=== PATIENT | female | born 1995 | race American Indian/Alaskan Native ===

== ENCOUNTER 2021-07-17 19:10 | Emergency (ER) | payer MEDICAID ==
[2021-07-17] MEDS ORDERED: IPRATROPIUM 0.02% NEBU 2.5 ML IH ONE (19:21)
[2021-07-17] MEDS ORDERED: SODIUM CHLORIDE 0.9% 1000 ML 1,000 ML IV ONE (19:21)
[2021-07-17] MEDS ORDERED: ALBUTEROL 2.5 MG/3 ML NEBU IH ONE ×2 (19:21→21:18)
[2021-07-17] MEDS ORDERED: methylPREDNISolone Sod Succinate 125 MG/2 ML INJ IV ONE (19:21)
--- NOTE | 2021-07-17 19:23 | Event Note ---
ED Screening Note Date of service: 07/17/21 Time: 19:22 ED Screening Note: This initial assessment/diagnostic orders/clinical plan/treatment(s) is/are subject to change based on patients health status, clinical progression and re- assessment by fellow clinical providers in the ED. Further treatment and workup at subsequent clinical providers discretion. Patient/guardian urged not to elope from the ED as their condition may be serious if not clinically assessed and managed. Is a 26-year-old female with history of asthma. Patient presents with concern for shortness of breath secondary to possible asthma exacerbation. She received DuoNeb's prior to my evaluation. On exam she does have wheezing noted bilaterally. Initial orders include: X-ray, basic labs, DuoNeb's, Solu-Medrol.
[2021-07-17 19:38] LABS: Basophils % (Auto) 0.5 % (0.0-1.8); Eosinophils % (Auto) 0.7 % (0.0-4.3); Hematocrit 37.4 % (30.3-42.9); Hemoglobin 12.4 gm/dl (10.1-14.3); Lymphocytes # (Auto) 1.5 K/mm3 (1.2-5.4); Lymphocytes % (Auto) 24.4 % (13.4-35.0); Mean Corpuscular HGB Conc 33 % (30-34); Mean Corpuscular Volume 93 fl (79-97); Monocytes # (Auto) 0.5 K/mm3 (0.0-0.8); Monocytes % (Auto) 7.8 % (0.0-7.3); Platelet Count 260 K/mm3 (140-440); Red Blood Count 4.02 M/mm3 (3.65-5.03); Red Cell Distribution Width 12.9 % (13.2-15.2)
[2021-07-17] MEDS ORDERED: KETOROLAC 30 MG/1 ML INJ IV ONE (21:18)
--- NOTE | 2021-07-17 21:26 | Emergency Department Report ---
HPI - General Chief Complaint: Adult Asthma Time Seen by Provider: 07/17/21 21:08 - HPI HPI: 26-year-old -[place] female presents to the emergency department with complaint of shortness of breath, wheezing, and some left-sided rib/chest pain that started earlier today. Initially she called out EMS and they gave her a nebulizer treatment with some improvement of her shortness of breath. However she continued to have the left-sided rib/chest pain so she came in to be seen. She says that the pain prior to treatment in the emergency department was 10 out of 10 but is now down to a 7 out of 10. It worsens with movements, ambulation, palpation. The patient says that she has had the same Fiona pains with previous asthma exacerbations but usually not this intense. She does not have an inhaler or nebulizer machine at home. She does not smoke cigarettes. No sick contacts at home. She denies any fever, lower extremity swelling, back p ain, nausea, vomiting or diaphoresis. [facility] to [facility]. ED Past Medical Hx - Past Medical History Previous Medical History?: Yes Hx Asthma: Yes - Surgical History Past Surgical History?: No - Social History Smoking Status: Current Every Day Smoker Substance Use Type: Marijuana - Medications Home Medications: Home Medications Medication Instructions Recorded Confirmed Last Taken Type Albuterol Mdi (or & Nicu Only) 2 puff IH QID PRN #8.5 gram 07/17/21 Unknown Rx [ProAir HFA Inhaler] predniSONE [Deltasone] 20 mg PO QDAY #4 tab 07/17/21 Unknown Rx ED Review of Systems ROS: Stated complaint: ASTHMA Other details as noted in HPI Comment: All other systems reviewed and negative Constitutional: denies: chills, fever Eyes: denies: eye pain, vision change ENT: denies: ear pain, throat pain Respiratory: shortness of breath, wheezing Cardiovascular: chest pain. denies: edema Gastrointestinal: denies: abdominal pain, vomiting Genitourinary: denies: dysuria, discharge Musculoskeletal: denies: back pain, arthralgia Skin: denies: rash, lesions Neurological: denies: headache, weakness Physical Exam - Physical Exam Vital Signs: Vital Signs 07/17/21 19:22 Temperature 98 F Pulse Rate 86 Respiratory 20 Rate Blood Pressure 127/64 O2 Sat by Pulse 100 Oximetry Physical Exam: GENERAL: The patient is well-developed well-nourished. HENT: Normocephalic. Atraumatic. Patient has moist mucous membranes. EYES: Extraocular motions are intact. NECK: Supple. Trachea is midline. CHEST/LUNGS: Mild expiratory wheezing. No tachypnea or accessory muscle use. There is reproducible left anterior lateral rib tenderness to palpation. No crepitus or deformity. There is no respiratory distress noted. HEART/CARDIOVASCULAR: Regular. There is no tachycardia. There is no murmur. ABDOMEN: Abdomen is soft, nontender. Patient has normal bowel sounds. SKIN: Skin is warm and dry. NEURO: The patient is awake, alert, and oriented. The patient is cooperative. The patient has no focal neurologic deficits. Normal speech. MUSCULOSKELETAL: There is no tenderness or deformity. There is no limitation range of motion. ED Course Vital Signs 07/17/21 19:22 Temperature 98 F Pulse Rate 86 Respiratory 20 Rate Blood Pressure 127/64 O2 Sat by Pulse 100 Oximetry ED Medical Decision Making - Lab Data Result diagrams: 07/17/21 19:29 Lab Results 07/17/21 07/17/21 07/17/21 Range/Units 19:29 19:29 21:30 WBC 6.2 (4.5-11.0) K/mm3 RBC 4.02 (3.65-5.03) M/mm3 Hgb 12.4 (10.1-14.3) gm/dl Hct 37.4 (30.3-42.9) % MCV 93 (79-97) fl MCH 31 (28-32) pg MCHC 33 (30-34) % RDW 12.9 L (13.2-15.2) % Plt Count 260 (140-440) K/mm3 Lymph % (Auto) 24.4 (13.4-35.0) % [place] % (Auto) 7.8 H (0.0-7.3) % Eos % (Auto) 0.7 (0.0-4.3) % Baso % (Auto) 0.5 (0.0-1.8) % Lymph # (Auto) 1.5 (1.2-5.4) K/mm3 [place] # (Auto) 0.5 (0.0-0.8) K/mm3 Eos # (Auto) 0.0 (0.0-0.4) K/mm3 Baso # (Auto) 0.0 (0.0-0.1) K/mm3 Seg Neutrophils % 66.6 (40.0-70.0) % Seg Neutrophils # 4.1 (1.8-7.7) K/mm3 Magnesium 1.90 (1.7-2.3) mg/dL HCG, Qual Negative (Negative) - Radiology Data Radiology results: image reviewed interpreted by me: Chest x-ray does not show any acute process. There are no pleural effusions, obvious pneumonia and there is no pneumothorax. No widened mediastinum. - Medical Decision Making This patient presents to the emergency department with complaint of shortness of breath, wheezing and some left-sided chest/rib pain. The chest/rib pain is reproducible to palpation and with certain movements of her torso. The patient was seen by one of my colleagues prior to my shift starting and she was given a DuoNeb breathing treatment, Solu-Medrol, and some IV fluid. During my initial examination there is only some mild expiratory wheezing the patient does not appear in any respiratory or acute distress. The chest discomfort appears to be more consistent with costochondritis and/or chest wall pain and does not appear consistent with ACS or coronary artery disease. Chest x-ray does not show any pneumonia, pleural effusions, pneumothorax, widened mediastinum, or any other acute process. Patient was later given a dose of Toradol. Upon reevaluation she is feeling greatly improved. Vital signs reassuring including being afebrile. She will be discharged home to follow-up with primary care and has been given an albuterol inhaler and a small course of steroids. Critical Care Time: No Critical care attestation.: If time is entered above; I have spent that time in minutes in the direct care of this critically ill patient, excluding procedure time. ED Disposition Clinical Impression: Rib pain on left side Asthma exacerbation Qualifiers: Asthma severity: unspecified severity Asthma persistence: unspecified Qualified Code(s): J45.901 - Unspecified asthma with (acute) exacerbation Disposition: 01 HOME / SELF CARE / HOMELESS Is pt being admited?: No Condition: Stable Instructions: Nonspecific Chest Pain, Adult, Asthma Attack Additional Instructions: Please follow-up with a primary care physician in the next few days. Return to the emergency department with any worsening of your symptoms, new or concerning symptoms not addressed during this current emergency department visit, or with any acute distress. Prescriptions: predniSONE [Deltasone] 20 mg PO QDAY #4 tab Albuterol Mdi (or & Nicu Only) [ProAir HFA Inhaler] 2 puff IH QID PRN #8.5 gram PRN Reason: Shortness Of Breath Referrals: [facility] [Provider Group] - 3-5 Days Time of Disposition: 23:26
--- NOTE | 2021-07-17 22:30 | XRay Report ---
XR chest routine 2V INDICATION / CLINICAL INFORMATION: CP, SOB. COMPARISON: None available. FINDINGS: SUPPORT DEVICES: None. HEART /PULMONARY VASCULATURE: No significant abnormality. LUNGS / PLEURA: No significant pulmonary or pleural abnormality. No pneumothorax. ADDITIONAL FINDINGS: No significant additional findings. IMPRESSION: 1. No acute findings. Signer Name: Ricki Meehan MD Signed: 07/17/2021 10:25 PM Workstation Name: [id number]
[2021-07-17 23:56] VITALS: BP 107/58
--- NOTE | 2021-07-20 14:17 | Electrocardiograph Report ---
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
== END 2021-07-17 23:56 | disposition home or self-care (01) ==
LOC: ED 19:10
DX: R07.81 Pleurodynia (principal); J45.901 Unspecified asthma with (acute) exacerbation; F17.200 Nicotine dependence, unspecified, uncomplicated; F12.90 Cannabis use, unspecified, uncomplicated
CPT/HCPCS: 36415; 71046; 83735; 84703; 85025; 93005; 94640; 96361; 96374; 96375; 99284; J2930; J7030; Q0162